=== PATIENT | male | born 1990 | race Caucasian/White ===

== ENCOUNTER 2016-08-11 19:57 | Emergency (ER) | payer OTHER ==
--- NOTE | ~2016-08-11 | CR63 ---
[facility] A Service of [facility] & [facility] RADIOLOGY TEXT RESULTS PATIENT: KYLEE OCAMPO LOCATION: SED : 92 UNIT #: [id number] AGE: [address]: Luis Barlow SEX: M ORDER DR: [id number] [place] [address] [id number] E MR#: [id number] Acc #: [id number] NAME: KYLEE OCAMPO : 1990 SEX: M STUDY DATE/TIME: 08/11/2016 21:00 UNIT: SED ROOM: STUDY DESCRIPTION: CR Chest 2 View Attending Physician: Luis Barlow P.A.-C. Ordering Physician: Luis Barlow P.A.-C. Primary Care Physician: Casper Chun M.D. MEDICAL IMAGING REPORT This report is preliminary unless electronic signature is present. EXAM Two-view chest HISTORY Cough, fever since last night. FINDINGS PA and lateral examination of the chest upright shows a good expansion of the parenchyma with a normal distribution of the pulmonary vascularity. There is no indication of congestion, effusion, infiltrate, tumor, or nodular density. The pleural reflections and diaphragmatic contours are normal. The cardiac silhouette and mediastinal anatomy is within normal limits. IMPRESSION Normal chest. Dictated by... Roz Johnson M.D. THIS IS AN ELECTRONICALLY VERIFIED REPORT Roz Johnson M.D. at 08/12/2016 3:10 PM [place]on TD: 08/12/2016 11:13 JOB #: [id number] MEDICAL IMAGING REPORT Page 1 of 1
[~2016-08-11 19:57] MED LIST: AMOXICILLIN500 M1 PO; ATARAX PO; DICLOFENAC PO; ELIMITE60 GM TOP; FLEXERIL10 M1 PO; HYDROCORTISONE30 G2 TOP; MEDROL4 MG/DOSE- PO; NO MEDICATIONS; NORFLEX100 M1 PO; PEN-VEE K PO; PHENERGAN PO; TYLENOL #3 PO; XYLOCAINE20 ML 2% V EXT
[2016-08-11 20:49] LABS: URINE SOURCE CLEAN CATCH
[2016-08-11 20:52] LABS: URINE APPEARANCE CLEAR; URINE BILIRUBIN NEG (NEG); URINE BLOOD NEG (NEG); URINE COLOR YELLOW; URINE GLUCOSE NEG (NORM); URINE KETONE NEG (NEG); URINE LEUKOCYTE ESTERASE NEG (NEG); URINE NITRATE NEG (NEG); URINE PROTEIN NEG (NEG)
[2016-08-11 20:53] LABS: MICRO INDICATED? NO
[2016-08-11 20:58] LABS: BASOPHIL# 0.1 X10e3 (0-0.3); BASOPHIL% 0.8 % (0-2.5); EOSINOPHIL# 0.3 X10e3 (0-0.7); EOSINOPHIL% 3.7 % (0.0-7.0); HEMOGLOBIN 14.4 gm/dL (13.0-16.0); LYMPHOCYTE# 2.3 X10e3 (1.0-3.5); LYMPHOCYTE% 31.7 % (17.0-45.0); MEAN CELL VOLUME 90.2 FL (83-96); MEAN CORPUSCULAR HEMOGLOBIN 30.9 PG (28-34); MEAN CORPUSCULAR HGB CONC 34.3 g/dL (30-36); MONOCYTE# 1.3 X10e3 (0-1.0); MONOCYTE% 17.2 % (3.0-12.0); NEUTROPHIL# 3.4 X10e3 (1.5-7.1); NEUTROPHIL% 46.6 % (40-75); PLATELET COUNT 168 X10e3 (140-420); RED BLOOD COUNT 4.66 X10e (3.90-5.60); RED CELL DISTRIBUTION WIDTH 13.3 % (11.0-15.5); WHITE BLOOD COUNT 7.3 X10e3 (4.0-10.5)
[2016-08-11 21:00] LABS: DIFF IND NO
[2016-08-11 21:13] LABS: CALCIUM SERUM 9.1 mg/dL (8.4-10.2); CREATININE SERUM 0.9 mg/dL (0.6-1.4); GLOM FILT RATE Estimated 119.1 mL/min (>60); POTASSIUM 3.5 mmol/L (3.5-5.1)
== END 2016-08-11 22:27 | disposition home or self-care (01) ==
LOC: SED 19:57
PROVIDERS: Physician Assistant
DX: J20.9 Acute bronchitis, unspecified (principal); R10.9 Unspecified abdominal pain; F31.9 Bipolar disorder, unspecified; F90.9 Attention-deficit hyperactivity disorder, unspecified type; F17.210 Nicotine dependence, cigarettes, uncomplicated; Z88.8 Allergy status to other drugs, medicaments and biological substances
CPT/HCPCS: 36415; 71020; 80048; 81003; 85025; 96374; 96375; 99284; J1885; J2405

== ENCOUNTER 2016-09-09 23:05 | Emergency (ER) | payer OTHER ==
[~2016-09-09] VITALS: Ht 170.2 cm; Wt 64.4 kg
[2016-09-10 00:02] LABS: BASOPHIL# 0.1 X10e3 (0-0.3); DIFF IND NO; EOSINOPHIL# 0.6 X10e3 (0-0.7); EOSINOPHIL% 6.7 % (0.0-7.0); HEMATOCRIT 38.5 % (38.0-50.0); HEMOGLOBIN 13.2 gm/dL (13.0-16.0); LYMPHOCYTE# 3.2 X10e3 (1.0-3.5); LYMPHOCYTE% 32.7 % (17.0-45.0); MEAN CELL VOLUME 88.5 FL (83-96); MEAN CORPUSCULAR HEMOGLOBIN 30.3 PG (28-34); MEAN CORPUSCULAR HGB CONC 34.2 g/dL (30-36); MEAN PLATELET VOLUME 8.5 FL (6.5-11.5); MONOCYTE# 0.8 X10e3 (0-1.0); MONOCYTE% 8.2 % (3.0-12.0); NEUTROPHIL% 51.4 % (40-75); PLATELET COUNT 195 X10e3 (140-420); RED BLOOD COUNT 4.35 X10e (3.90-5.60); RED CELL DISTRIBUTION WIDTH 12.8 % (11.0-15.5); WHITE BLOOD COUNT 9.7 X10e3 (4.0-10.5)
[2016-09-10 00:16] LABS: ALBUMIN SERUM 4.3 g/dL (3.5-5.0); BILIRUBIN,TOTAL 0.6 mg/dL (0.2-2.0); BUN/CREATININE RATIO 10.83; CALCIUM SERUM 8.7 mg/dL (8.4-10.2); CREATININE SERUM 1.2 mg/dL (0.6-1.4); GLOM FILT RATE Estimated 84.2 mL/min (>60); POTASSIUM 3.2 mmol/L (3.5-5.1)
[2016-09-10 00:56] LABS: SEDIMENTATION RATE-SW ONLY 2 mm/hr (0-15)
[2016-09-10] MEDS ORDERED: VOLTAREN75 MG PO (01:13)
== END 2016-09-10 01:22 | disposition home or self-care (01) ==
LOC: SED 23:05
PROVIDERS: Physician Assistant Medical
DX: S29.012A Strain of muscle and tendon of back wall of thorax, initial encounter (principal); F31.9 Bipolar disorder, unspecified; J45.909 Unspecified asthma, uncomplicated; Z87.442 Personal history of urinary calculi; F17.210 Nicotine dependence, cigarettes, uncomplicated; Z88.8 Allergy status to other drugs, medicaments and biological substances; Z79.899 Other long term (current) drug therapy; X58.XXXA Exposure to other specified factors, initial encounter; Y92.9 Unspecified place or not applicable
CPT/HCPCS: 36415; 80053; 85025; 85651; 99283

== ENCOUNTER 2016-10-04 15:01 | Emergency (ER) | payer OTHER ==
[~2016-10-04] VITALS: Ht 170.2 cm; Wt 66.7 kg
--- NOTE | ~2016-10-04 | CT52 ---
[facility] A Service [facility] RADIOLOGY TEXT RESULTS PATIENT: KYLEE OCAMPO LOCATION: SED : 92 UNIT #: [id number] AGE: [address]: GEOFF JOY SEX: M ORDER DR: [id number] [place] [address] [id number] E MR#: [id number] Acc #: [id number] NAME: KYLEE OCAMPO : 1990 SEX: M STUDY DATE/TIME: 10/04/2016 16:59 UNIT: SED ROOM: STUDY DESCRIPTION: CT Cervical Spine Wo Cont Attending Physician: Geoff Joy Ordering Physician: Physician Non-Staff Primary Care Physician: Casper Chun M.D. MEDICAL IMAGING REPORT This report is preliminary unless electronic signature is present. EXAM CT cervical spine without contrast. HISTORY Neck and back and shoulder pain for 5 days. Numbness and tingling in both hands. No recent injury. TECHNIQUE This CT exam was performed with one or more of the following radiation dose reduction techniques: Automatic exposure control, adjustment of mA and/or kV according to patient size, and iterative reconstruction. FINDINGS CT cervical spine without contrast demonstrates satisfactory cervical alignment. No fracture, disc space narrowing or subluxation. Very small anterior marginal osteophytes at C5-6. No bony central canal stenosis or bony outlet foraminal stenosis. IMPRESSION 1. No acute findings. 2. Satisfactory cervical alignment. 3. No fracture. Dictated by... Ta Hester M.D. THIS IS AN ELECTRONICALLY VERIFIED REPORT Ta Hester M.D. at 10/05/2016 10:07 PM DFL/bd TD: 10/05/2016 17:31 [facility] A Service [facility] RADIOLOGY TEXT RESULTS PATIENT: KYLEE OCAMPO LOCATION: SED : 92 UNIT #: [id number] AGE: [address]: JOY,GEOFF W SEX: M ORDER DR: JOB #: [id number] MEDICAL IMAGING REPORT Page 1 of 1
--- NOTE | ~2016-10-04 | CR63 ---
[facility]. [facility] A Service of [facility] RADIOLOGY TEXT RESULTS PATIENT: KYLEE OCAMPO LOCATION: SED : 92 UNIT #: [id number] AGE: [address]: GEOFF JOY SEX: M ORDER DR: [id number] [place] [address] [id number] E MR#: [id number] Acc #: [id number] NAME: KYLEE OCAMPO : 1990 SEX: M STUDY DATE/TIME: 10/04/2016 16:52 UNIT: SED ROOM: STUDY DESCRIPTION: CR Chest 2 View Attending Physician: Geoff Joy Ordering Physician: Physician Non-Staff Primary Care Physician: Casper Chun M.D. MEDICAL IMAGING REPORT This report is preliminary unless electronic signature is present. EXAM PA and lateral chest HISTORY Neck and shoulder pain for 5 days. Numbness and tingling in hands. No recent injury. Shortness of air. FINDINGS PA and lateral examination of the chest upright shows a good expansion of the parenchyma with a normal distribution of the pulmonary vascularity. There is no indication of congestion, effusion, infiltrate, tumor, or nodular density. The pleural reflections and diaphragmatic contours are normal. The cardiac silhouette and mediastinal anatomy is within normal limits. IMPRESSION Normal chest. Dictated by... Ta Hester M.D. THIS IS AN ELECTRONICALLY VERIFIED REPORT Ta Hester M.D. at 10/05/2016 10:07 PM DFL/psc TD: 10/05/2016 17:30 JOB #: [id number] MEDICAL IMAGING REPORT Page 1 of 1
[~2016-10-04 15:01] MED LIST changes: +VOLTAREN75 MG PO
== END 2016-10-04 17:59 | disposition home or self-care (01) ==
LOC: SED 15:01
DX: S16.1XXA Strain of muscle, fascia and tendon at neck level, initial encounter (principal); M54.12 Radiculopathy, cervical region; F31.9 Bipolar disorder, unspecified; F17.210 Nicotine dependence, cigarettes, uncomplicated; X58.XXXA Exposure to other specified factors, initial encounter; Y92.89 Other specified places as the place of occurrence of the external cause
CPT/HCPCS: 71020; 72125; 96372; 99284; J1885

== ENCOUNTER 2016-10-26 04:04 | Emergency (ER) | payer OTHER ==
[~2016-10-26] VITALS: Ht 170.2 cm; Wt 66.7 kg
--- NOTE | ~2016-10-26 | CR243 ---
[facility]. [facility] A Service of [facility] & [facility] RADIOLOGY TEXT RESULTS PATIENT: KYLEE OCAMPO LOCATION: SED : [birth year] UNIT #: [id number] AGE: [address]: Luis Kathleen MD SEX: M ORDER DR: [id number] [place] [address] [id number] E MR#: [id number] Acc #: [id number] NAME: KYLEE OCAMPO : 1990 SEX: M STUDY DATE/TIME: 10/26/2016 4:33 UNIT: SED ROOM: STUDY DESCRIPTION: CR Thoracic Spine 3 Views Attending Physician: Luis Kathleen M.D. Ordering Physician: Luis Kathleen M.D. Primary Care Physician: Casper Chun M.D. MEDICAL IMAGING REPORT This report is preliminary unless electronic signature is present. EXAM Thoracic spine series INDICATION Back pain after an injury today. PROCEDURE Three views thoracic spine. COMPARISON None. FINDINGS Thoracic vertebral bodies have normal height. Alignment is preserved. IMPRESSION No acute findings. Dictated by... Aly Byers M.D. THIS IS AN ELECTRONICALLY VERIFIED REPORT Aly Byers M.D. at 10/27/2016 10:04 PM ALVAREZ/lesa TD: 10/26/2016 14:21 JOB #: [id number] MEDICAL IMAGING REPORT Page 1 of 1
--- NOTE | ~2016-10-26 | CR63 ---
[facility]. [facility] A Service of [facility] & [facility] RADIOLOGY TEXT RESULTS PATIENT: KYLEE OCAMPO LOCATION: SED : [birth year] UNIT #: [id number] AGE: [address]: Luis Kathleen MD SEX: M ORDER DR: [id number] [place] [address] [id number] E MR#: [id number] Acc #: [id number] NAME: KYLEE OCAMPO : 1990 SEX: M STUDY DATE/TIME: 10/26/2016 4:33 UNIT: SED ROOM: STUDY DESCRIPTION: CR Chest 2 View Attending Physician: Luis Kathleen M.D. Ordering Physician: Luis Kathleen M.D. Primary Care Physician: Casper Chun M.D. MEDICAL IMAGING REPORT This report is preliminary unless electronic signature is present. EXAM Two-view chest INDICATIONS Chest pain after an injury today. PROCEDURE Frontal and lateral views of the chest. COMPARISON STUDIES 10/13/16. FINDINGS The heart size is within normal limits. Lungs clear. No pleural fluid or pneumothorax. IMPRESSION No active process Dictated by... Aly Byers M.D. THIS IS AN ELECTRONICALLY VERIFIED REPORT Aly Byers M.D. at 10/27/2016 10:04 PM Chicho TD: 10/26/2016 14:23 JOB #: [id number] MEDICAL IMAGING REPORT Page 1 of 1
--- NOTE | ~2016-10-26 | CT52 ---
[facility] A Service of [facility] RADIOLOGY TEXT RESULTS PATIENT: KYLEE OCAMPO LOCATION: SED : [birth year] UNIT #: [id number] AGE: [address]: Luis Kathleen MD SEX: M ORDER DR: [id number] [place] [address] [id number] E MR#: [id number] Acc #: [id number] NAME: KYLEE OCAMPO : 1990 SEX: M STUDY DATE/TIME: 10/26/2016 4:51 UNIT: SED ROOM: STUDY DESCRIPTION: CT Cervical Spine Wo Cont Attending Physician: Luis Kathleen M.D. Ordering Physician: Luis Kathleen M.D. Primary Care Physician: Casper Chun M.D. MEDICAL IMAGING REPORT This report is preliminary unless electronic signature is present. EXAM CT cervical spine without contrast INDICATION Neck pain after an injury today. PROCEDURE Unenhanced CT cervical spine. This CT examination was performed with one or more of the following radiation dose reduction techniques: automatic exposure control, adjustment of mA and/or kV according to patient size, and iterative reconstruction. COMPARISON 10/04/2016. FINDINGS Cervical bodies have normal height. Alignment is preserved. Craniocervical junction and the dens are intact. No fracture. No critical central canal narrowing. IMPRESSION No acute findings. Dictated by... Aly Byers M.D. THIS IS AN ELECTRONICALLY VERIFIED REPORT Aly Byers M.D. at 10/27/2016 10:04 PM EED/lesa TD: 10/26/2016 14:23 [facility] A Service of [facility] RADIOLOGY TEXT RESULTS PATIENT: KYLEE OCAMPO LOCATION: SED : [birth year] UNIT #: [id number] AGE: [address]: Luis Kathleen MD SEX: M ORDER DR: NEO #: [id number] MEDICAL IMAGING REPORT Page 1 of 1
--- NOTE | ~2016-10-26 | CR230 ---
[facility] A Service of [facility] & [facility] RADIOLOGY TEXT RESULTS PATIENT: KYLEE OCAMPO LOCATION: SED : [birth year] UNIT #: [id number] AGE: [address]: Luis Kathleen MD SEX: M ORDER DR: [id number] [place] [address] [id number] E MR#: [id number] Acc #: [id number] NAME: KYLEE OCAMPO : 1990 SEX: M STUDY DATE/TIME: 10/26/2016 4:33 UNIT: SED ROOM: STUDY DESCRIPTION: CR Shoulder Min 2 View Rt Attending Physician: Luis Kathleen M.D. Ordering Physician: Luis Kathleen M.D. Primary Care Physician: Casper Chun M.D. MEDICAL IMAGING REPORT This report is preliminary unless electronic signature is present. EXAM Right shoulder series INDICATION Right shoulder pain after an injury today. PROCEDURE Three views of the right shoulder. COMPARISON None. FINDINGS No acute fracture or dislocation. IMPRESSION No acute findings. Dictated by... Aly Byers M.D. THIS IS AN ELECTRONICALLY VERIFIED REPORT Aly Byers M.D. at 10/27/2016 10:04 PM ALVAREZ/lesa TD: 10/26/2016 14:21 JOB #: [id number] MEDICAL IMAGING REPORT Page 1 of 1
== END 2016-10-26 05:28 | disposition home or self-care (01) ==
LOC: SED 04:04
DX: S43.401A Unspecified sprain of right shoulder joint, initial encounter (principal); S16.1XXA Strain of muscle, fascia and tendon at neck level, initial encounter; S29.012A Strain of muscle and tendon of back wall of thorax, initial encounter; S20.211A Contusion of right front wall of thorax, initial encounter; Z88.8 Allergy status to other drugs, medicaments and biological substances; W19.XXXA Unspecified fall, initial encounter
CPT/HCPCS: 71020; 72072; 72125; 73030; 99284

== ENCOUNTER 2016-11-10 07:47 | Emergency (ER) | payer OTHER ==
--- NOTE | ~2016-11-10 | CR20 ---
[facility] A Service of [facility] & [facility] RADIOLOGY TEXT RESULTS PATIENT: KYLEE OCAMPO LOCATION: SED : [birth year] UNIT #: [id number] AGE: [address]: Jerrod Gunter MD SEX: M ORDER DR: [id number] [place] [address] [id number] E MR#: [id number] Acc #: [id number] NAME: KYLEE OCAMPO : 1990 SEX: M STUDY DATE/TIME: 11/10/2016 8:09 UNIT: SED ROOM: STUDY DESCRIPTION: CR Ankle Min 3 Views Lt Attending Physician: Jerrod Gunter M.D. Ordering Physician: Jerrod Gunter M.D. Primary Care Physician: Casper Chun M.D. MEDICAL IMAGING REPORT This report is preliminary unless electronic signature is present. EXAM Three views left ankle 11/10/2016 HISTORY Left ankle pain, redness, swelling and bruising along the medial side which began at 04:00 a.m. today. No documented injury. COMPARISON Left foot radiographs 11/10/2016. FINDINGS No acute left ankle fracture is seen. No subcutaneous air is identified. No retained radiopaque foreign body is seen in the soft tissues. No periostitis or osteolysis. No significant osteoarthritic changes. IMPRESSION Normal 3 views of the left ankle. Dictated by... Sakina Jordan M.D. THIS IS AN ELECTRONICALLY VERIFIED REPORT Sakina Jordan M.D. at 11/11/2016 10:51 AM KYA/lesa TD: 11/10/2016 15:01 JOB #: [id number] MEDICAL IMAGING REPORT Page 1 of 1
--- NOTE | ~2016-11-10 | CR126 ---
[facility] A Service [facility] RADIOLOGY TEXT RESULTS PATIENT: KYLEE OCAMPO LOCATION: SED : [birth year] UNIT #: [id number] AGE: [address]: Jerrod Gunter MD SEX: M ORDER DR: [id number] [place] [address] [id number] E MR#: [id number] Acc #: [id number] NAME: KYLEE OCAMPO : 1990 SEX: M STUDY DATE/TIME: 11/10/2016 8:09 UNIT: SED ROOM: STUDY DESCRIPTION: CR Foot Complete Min 3 View Lt Attending Physician: Jerrod Gunter M.D. Ordering Physician: Jerrod Gunter M.D. Primary Care Physician: Casper Chun M.D. MEDICAL IMAGING REPORT This report is preliminary unless electronic signature is present. EXAM Three views left foot 11/10/2016 HISTORY 26-year-old male with left foot and ankle pain, redness, swelling, bruising along the medial side. Symptoms began at 04:00 a.m. today. No known injury. COMPARISON Left ankle radiographs 11/10/2016. FINDINGS No fracture. No joint dislocation. No appreciable osteoarthritic change. No retained radiopaque foreign body is seen in the soft tissues. No periostitis or osteolysis. No subcutaneous gas is identified. IMPRESSION Normal 3 views of the left foot. Dictated by... Sakina Jordan M.D. THIS IS AN ELECTRONICALLY VERIFIED REPORT Sakina Jordan M.D. at 11/11/2016 10:51 AM SABRINA/lesa TD: 11/10/2016 15:13 JOB #: [id number] MEDICAL IMAGING REPORT [facility] A Service [facility] RADIOLOGY TEXT RESULTS PATIENT: KYLEE OCAMPO LOCATION: SED : [birth year] UNIT #: [id number] AGE: [address]: Jerrod Gunter MD SEX: M ORDER DR: Page 1 of 1
== END 2016-11-10 09:15 | disposition home or self-care (01) ==
LOC: SED 07:47
DX: S93.402A Sprain of unspecified ligament of left ankle, initial encounter (principal); J45.909 Unspecified asthma, uncomplicated; F31.9 Bipolar disorder, unspecified; F90.9 Attention-deficit hyperactivity disorder, unspecified type; Z87.442 Personal history of urinary calculi; F17.200 Nicotine dependence, unspecified, uncomplicated; X58.XXXA Exposure to other specified factors, initial encounter
CPT/HCPCS: 29405; 73610; 73630; 99283